=== PATIENT | female | born 1965 | race Caucasian/White ===

== ENCOUNTER 2016-06-26 17:42 | Outpatient (CLI) ==
[2016-06-26 17:52] VITALS: BMI 25.7
== END 2016-06-26 17:43 ==
LOC: AMBL 17:42
PROVIDERS: ATTEND Emergency Medicine
DX: M54.9 Dorsalgia, unspecified (principal); V40.5XXA Car driver injured in collision with pedestrian or animal in traffic accident, initial encounter

== ENCOUNTER 2016-06-26 17:51 | Emergency (ER) ==
[2016-06-26 17:52] VITALS: BMI 25.7
[2016-06-26] MEDS ORDERED: ZOFRAN ODT PO STA (18:02)
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
[2016-06-26] MEDS ORDERED: TORADOL IM STA (18:08)
[2016-06-26] MEDS ORDERED: ZOFRAN 4 MG/2 ML IM STA (18:08)
[2016-06-26 18:19] VITALS: BP 139/90; TEMP 98.5
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
== END 2016-06-26 19:32 | disposition home or self-care (01) ==
LOC: ED 17:51
DX: S39.012A Strain of muscle, fascia and tendon of lower back, initial encounter (principal); V40.5XXA Car driver injured in collision with pedestrian or animal in traffic accident, initial encounter; Z98.1 Arthrodesis status
CPT/HCPCS: 96372; 99283

== ENCOUNTER 2016-07-14 12:07 | Outpatient (CLI) ==
--- NOTE | 2016-07-14 18:06 | MRI ---
EXAM: Lumbar spine MRI without contrast. HISTORY: Low back pain with radiculopathy. COMPARISON: Lumbar spine CT scan 06/26/2016. TECHNIQUE: Multiplanar, multisequence MR images were acquired lumbar spine without contrast. FINDINGS: Five lumbar-type vertebra are present. There is minor lower lumbar dextroscoliosis cente red at L4-5 and 1.5 mm retrolisthesis of L4 on L5. The lumbar vertebra are normal in height and int rinsic bone marrow signal. There is minor lower lumbar ventral spondylosis and mild disc space narr owing at L4-5. Conus medullaris ends at L1 and has normal signal intensity. There are postoperativ e posterior longitudinal interbody fusion changes at L5-S1. Metallic artifact is present consistent with an anterior interbody graft and bipedicular screws and paired posterior fixation rods at L5-S1 . The visualized liver, spleen and kidneys are unremarkable. There are no paravertebral masses. T11-12: The intervertebral disc is normal. There is mild right hypertrophic facet arthropathy with out foraminal stenosis. T12-L1: The intervertebral disc is normal. There is minor right facet and ligamentum flavum hypert rophy and minor right foraminal stenosis. L1-2: The intervertebral disc is normal. L2-3: The intervertebral disc is normal. L3-4: The intervertebral disc is normal. L4-5: There is a mild disc bulge that is asymmetric to the left and mild bilateral hypertrophic fac et arthropathy and ligamentum flavum hypertrophy. This causes mild right and mild to moderate left neural foraminal stenosis with encroachment on the left L4 nerve. L5-S1: There are postoperative changes of an anterior interbody fusion, left hemilaminectomy and pa rtial medial facetectomy. Hypointense T1 and T2 soft tissue signal is present in the left anterior and lateral epidural space which extends into the medial left neural foramen and into the left poste rior paraspinous muscles. This is compatible with granulation tissue which partially surrounds the left L5 and S1 nerves. Contrast was not administered. There is no central canal stenosis or bony f oraminal stenosis. IMPRESSION: 1. Status post left L5-S1 microdiskectomy with hypointense T1 and T2 soft tissue signal partially s urrounding the left L5 and S1 nerves compatible with granulation tissue. Contrast was not administered. 2. Mild discogenic disease L4-5 with mild to moderate left neural foraminal stenosis.
== END 2016-07-14 12:08 | disposition home or self-care (01) ==
LOC: RAD 12:07
PROVIDERS: ATTEND Nurse Practitioner Gerontology
DX: M54.16 Radiculopathy, lumbar region (principal)

== ENCOUNTER 2016-07-20 15:55 | Emergency (ER) ==
[2016-07-20 16:01] VITALS: BP 135/96; TEMP 99.4; BMI 26.6
--- NOTE | 2016-07-20 16:03 | ED.PDOC ---
General ED Provider: Dr. CLIFTON QUINTERO JR Chief Complaint: Hypertension Stated Complaint: STATES ELEVATED BLOOD PRESSURE THIS WEEKEND--ALSO MIGRAINE HEADACHE-TOOK BISTOLIC TODAY--BLOOD PRESSURE 191/126 EARLIER TODAY THEN 151/117 [ End ]99.4 115 20 95% 135/96 Time Seen by Physician: 16:03 Mode of Arrival: Walk-In Information Source: Patient Exam Limitations: No limitations Primary Care Provider: SAMUEL ADRIAN Nursing and Triage Documentation Reviewed and Agree: No Review of Systems - Review Of Systems Constitutional: Reports: Malaise Eyes: Reports: Photophobia Ears, Nose, Mouth, Throat: Reports: No symptoms Respiratory: Reports: No symptoms Cardiac: Reports: Palpitations, Other GI: Reports: No symptoms : Reports: No symptoms Musculoskeletal: Reports: No symptoms Skin: Reports: No symptoms Neurological: Reports: Headache Endocrine: Reports: No symptoms Hematologic/Lymphatic: Reports: No symptoms All Other Systems: Other Past Medical History - Past Medical History Previously Healthy: Yes Endocrine: Reports: Hypothyroid Cardiovascular: Reports: None Respiratory: Reports: None Hematological: Reports: None Gastrointestinal: Reports: None Genitourinary: Reports: None Neuro/Psych: Reports: Migraine, Anxiety, Depression Musculoskeletal: Reports: Back Pain Cancer: Reports: None Last Menstrual Period: ABLATION Other Pertinent Past Medical History: right shoulder repaired x 2, gallbladder 2015, achilles tendon repair 2013 - Surgical History General Surgical History: Reports: Tubal ligation (right oophorectomy), C- section (x2), Appendectomy (18 y/o), Cholecystectomy (2014), Tonsillectomy ( tonsillectomy 6 y/o), Orthopedic (right shoulder repaired x 2, achilles tendon repair 2013), Back Surgery (SPACERS,PLATES AND SCREWS L-4 , S-07 OCT 2015), Other (thyroidectomy 2013, appendectomy at 18 y/o). Denies: Hysterectomy ( ablation 2000) - Family History Family History: Reports: Unknown - Social History Smoking Status: Former smoker Hx Substance Use: No Alcohol Screening: None Physical Exam - Physical Exam Appearance: Well-appearing Ill-appearing: Mild Pain Distress: Mild Eyes: BAO, EOMI, Conjunctiva clear ENT: Ears normal Neck: Supple Respiratory: Airway patent, Breath sounds clear, Breath sounds equal, Respirations nonlabored Cardiovascular: RRR, Pulses normal, No rub, No murmur (note blood pressure and home blood pressure was elevated before repeating medication) GI/: Soft, Nontender, No masses, Bowel sounds normal, No Organomegaly Musculoskeletal: Normal strength, ROM intact, No edema, No calf tenderness Skin: Warm, Dry, Normal color Neurological: Sensation intact, Motor intact, Reflexes intact, Cranial nerves intact, Alert, Oriented Psychiatric: Affect appropriate, Mood appropriate (concerned about thyroid dose) Re-Evaluation - Re-Evaluation Time of Re-Evaluation: 17:59 (bystolic 5 bid decreased to once daily by developer programmer analyst) Status: Improved (headache much better- will call dr cheatham about her thyroid, discuss dose of antihypertensive with dr adrian) Critical Care Note - Critical Care Note Total Time (mins): 5 Course - Course Orders, Labs, Meds: Lab Review 07/20/16 17:05 TSH 5.382 H Orders Category Date Time Status TSH [THYROID STIMULATING HORMONE] Stat LAB 07/20/16 17:05 Completed Promethazine HCl [Phenergan 25 mg/ml Vial] MEDS 07/20/16 16:04 Discontinued 25 mg IM ONCE STA Sumatriptan Succinate [Imitrex] MEDS 07/20/16 16:10 Discontinued 6 mg SUBCUT ONCE STA Medications Discontinued Medications Generic Name Dose Route Start Last Admin Trade Name Freq PRN Reason Stop Dose Admin Promethazine HCl 25 mg 07/20/16 16:04 07/20/16 16:18 Phenergan 25 Mg/Ml Vial IM 07/20/16 16:05 25 mg ONCE STA Administration Sumatriptan Succinate 6 mg 07/20/16 16:10 07/20/16 16:18 Imitrex SUBCUT 07/20/16 16:11 6 mg ONCE STA Administration Vital Signs: Temp Pulse Resp BP Pulse Ox 07/20/16 15:55 99.4 F 115 H 20 135/96 H 95 Departure - Departure Time of Disposition: 18:00 Disposition: HOME SELF-CARE Discharge Problem: Headache Qualifiers: Headache type: unspecified Headache chronicity pattern: acute headache Intractability: intractable Qualifier Code: (R51) Headache Instructions: Migraine Headache (ED), Tension Headache (ED) Condition: Good Pt referred to PMD for follow-up: Yes Additional Instructions: may take Tylenol and Motrin if headache not resolved call PMD for follow up inform developer programmer analyst of TSH; level consider adjusting thyroid medications Allergies/Adverse Reactions: Allergies IV dye Adverse Reaction (Uncoded 07/20/16 16:01) Home Medications: Ambulatory Orders Levothyroxine Sodium [Synthroid] 75 mcg PO QDAC 08/27/15 Liothyronine Sodium [Cytomel] 25 mcg PO DAILY 08/27/15 Sumatriptan Succinate [Imitrex] 100 mg PO DAILY PRN 08/27/15 Venlafaxine HCl [Effexor Xr] 150 mg PO BEDTIME 08/27/15 Atorvastatin Calcium [Lipitor] 20 mg PO BEDTIME 06/26/16 Nebivolol HCl [Bystolic] 5 mg PO BID 06/26/16
[2016-07-20] MEDS ORDERED: ZOFRAN 4 MG/2 ML IM STA (16:04)
[2016-07-20] MEDS ORDERED: PHENERGAN 25 MG/ML VIAL IM STA (16:04)
[2016-07-20] MEDS ORDERED: TORADOL IM STA (16:04)
[2016-07-20] MEDS ORDERED: IMITREX SUBCUT STA (16:10)
== END 2016-07-20 18:09 | disposition home or self-care (01) ==
LOC: ED 15:55
DX: R51 Headache (principal); E03.9 Hypothyroidism, unspecified; Z79.899 Other long term (current) drug therapy
CPT/HCPCS: 36415; 84443; 96372; 99283

== ENCOUNTER 2016-08-06 17:24 | Observation (INO) ==
[2016-08-06] MEDS ORDERED: ATIVAN PO PRN (17:46)
[2016-08-06] MEDS ORDERED: NON-FORMULARY MEDICATION (Sumatriptan Succinate [Imitrex] 100 MG) PO PRN (17:58)
[2016-08-06 18:12] VITALS: BMI 26.7
[2016-08-06 18:14] LABS: BASOPHILS # (AUTO) 0.1 K/uL (0-0.2); BASOPHILS % (AUTO) 0.8 % (0.0-3.0); EOSINOPHILS # (AUTO) 0.2 K/ul (0.0-0.7); EOSINOPHILS % (AUTO) 2.1 % (0.0-7.0); HEMATOCRIT 40.3 % (37.0-47.0); HEMOGLOBIN 14.5 g/dl (12.0-16.0); IMMATURE GRANULOCYTE % (AUTO) 0.4 % (0.0-5.0); LYMPHOCYTES # (AUTO) 2.4 K/uL (0.60-3.4); LYMPHOCYTES % (AUTO) 21.5 (10.0-50.0); MEAN CORPUSCULAR HEMOGLOBIN 31.3 pg (27.0-31.0); MEAN CORPUSCULAR VOLUME 86.9 fl (81.0-99.0); MONOCYTES # (AUTO) 0.4 K/uL (0.4-2.0); MONOCYTES % (AUTO) 3.9 (0-10); NEUTROPHILS % (AUTO) 71.3; PLATELET COUNT 321 10^3/uL (140-440); RED BLOOD COUNT 4.64 10^6/ul (4.20-5.40)
[2016-08-06 18:54] LABS: ALANINE AMINOTRANSFERASE 28 U/L (12-78); ALBUMIN/GLOBULIN RATIO 1.18; ALKALINE PHOSPHATASE 62 U/L (42-98); ANION GAP 13.6; ASPARTATE AMINO TRANSFERASE 21 U/L (15-37); BILIRUBIN,TOTAL 0.59 mg/dL (0.00-1.20); BLOOD UREA NITROGEN 13 mg/dL (7-18); BUN/CREATININE RATIO 13.97; CARBON DIOXIDE 26 mmol/L (21-32); CHLORIDE 103 mmol/L (98-107); CREATINE KINASE 175 U/L; CREATININE 0.93 mg/dL (0.60-1.30); GLUCOSE 100 mg/dL (70-110); POTASSIUM 3.6 mmol/L (3.5-5.10); SODIUM 139 mmol/L (136-145); TOTAL PROTEIN 7.4 g/dL (6.4-8.2)
[2016-08-06 18:59] LABS: CREATINE KINASE MB 2.8 ng/ml (0.0-3.6)
[2016-08-06] MEDS: CATAPRES PO SCH ×2 (19:17→20:15)
[2016-08-06] MEDS: BYSTOLIC PO SCH (19:34)
[2016-08-06] MEDS ORDERED: EFFEXOR XR PO SCH (21:00)
[2016-08-06] MEDS ORDERED: LIPITOR PO SCH (21:00)
[2016-08-06] MEDS ORDERED: REQUIP PO SCH (21:00)
[2016-08-06 22:28] LABS: BILIRUBIN,URINE Negative (NEGATIVE); KETONES,URINE Negative (NEGATIVE); LEUKOCYTE ESTERASE ,URINE 3+ (NEGATIVE); NITRITE,URINE Negative (NEGATIVE); PH,URINE 5.5 (5-9); PROTEIN,URINE Negative (NEGATIVE); URINE, BLOOD 1+ (NEGATIVE)
[2016-08-06 22:30] LABS: ADD URINE MICROSCOPIC YES
[2016-08-06 22:31] LABS: GRANULAR CASTS,URINE 0-2 (NOT PRESENT)
[2016-08-07] MEDS ORDERED: IMITREX PO PRN (07:14)
[2016-08-07] MEDS ORDERED: ZOFRAN 4 MG/2 ML IVP STA (09:11)
[2016-08-07] MEDS: CATAPRES PO SCH (10:09)
[2016-08-07] MEDS: BYSTOLIC PO SCH (10:34)
[2016-08-07 10:46] LABS: CREATINE KINASE 148 U/L
[2016-08-07 10:52] LABS: CREATINE KINASE 132 U/L
[2016-08-07 10:55] LABS: CREATINE KINASE MB 1.8 ng/ml (0.0-3.6)
[2016-08-07 11:01] VITALS: BP 104/69; TEMP 97.5
--- NOTE | 2016-10-02 10:20 | SSS ---
PRINCIPAL DIAGNOSIS: 1. Hypertensive urgency 2. Hypothyroidism 3. Migraine headache 4. Hyperlipidemia DISCUSSION: This is a 50 year old lady with migraine headaches and hypertension as well as hypothyroidism who presented to the emergency department with elevated blood pressure associated with headache. Her blood pressure was noted to be 191/126 early in the day. She was seen in the emergency department by Dr. Pollack and her blood pressure remained elevated and at this time her blood pressure was difficult to control and because persistent headache she was admitted to my services for observation. MEDICATIONS: Synthroid Cytomel Imitrex Effexor Lipitor Bystolic ALLERGIES: IV dye PAST MEDICAL HISTORY: Hypothyroidism Migraine headaches Hyperlipidemia Hypertension SURGICAL HISTORY: Right shoulder repair Gallbladder removal Cholecystectomy Achilles Tendon repair Tubal ligation section Appendectomy Tonsillectomy Thyroidectomy Appendectomy Hysterectomy with ablation, 2000 SOCIAL HISTORY: Previous smoker, no alcohol or illicit drug use noted. FAMILY HISTORY: Reviewed and thought not to be pertinent to discussion. REVIEW OF SYSTEMS: Headaches, No visual changes, tinnitus, hemoptysis, chest pain, shortness of breath, abdominal pain, blood in the stool, urinary symptoms or seizures. PHYSICAL EXAMINATION: VITAL SIGNS: Temperature 98.1, pulse 64, respirations 15 and blood pressure 116 /80. GENERAL: Exam reveals a 50-year-old lady who appears her stated age. She is alert times three. HEENT: Pupils are round. NECK: Supple. CHEST: Clear. CARDIOVASCULAR: Regular rate and rhythm. ABDOMEN: Soft, nontender. EXTREMITIES: Distal extremities without cyanosis or edema. CLINICAL COURSE: The patient was admitted to my services blood pressure was observes and seemed to improve, her headache resolved by this patient this patient was thought to be stable for discharge. She was discharged and will followup with me as well as her mold breaker in regards to her abnormal thyroid testing. Please see orders. MTDD
== END 2016-08-07 13:40 | disposition home or self-care (01) ==
LOC: MEDSURG B 17:24
PROVIDERS: ADMIT Family Medicine; ATTEND Family Medicine
DX: I16.0 Hypertensive urgency (principal); E03.9 Hypothyroidism, unspecified; G43.909 Migraine, unspecified, not intractable, without status migrainosus; E78.5 Hyperlipidemia, unspecified; Z87.891 Personal history of nicotine dependence; Z79.899 Other long term (current) drug therapy
CPT/HCPCS: 36415; 80053; 81001; 82550; 82553; 84439; 84443; 84484; 85025; 87086; 93005; 93010; 96374

== ENCOUNTER 2017-01-13 10:43 | Emergency (ER) ==
[2017-01-13 10:54] VITALS: BP 111/76; TEMP 97; BMI 25.7
[2017-01-13] MEDS: ZOFRAN 4 MG/2 ML IM STA ×2 (10:58→11:35)
[2017-01-13] MEDS: MORPHINE 4 MG/ML SYRINGE IM STA ×3 (10:59→13:22)
--- NOTE | 2017-01-13 12:05 | ED.PDOC ---
General ED Provider: Dr. KIET REBOLLEDO Chief Complaint: Headache Stated Complaint: headache Time Seen by Physician: 10:45 Mode of Arrival: Walk-In Information Source: Patient Exam Limitations: No limitations Primary Care Provider: SAMUEL ADRIAN Nursing and Triage Documentation Reviewed and Agree: Yes Neurological Complaint Exam - Headache Complaint/Exam Onset: Gradual Duration: 1 day Symptoms Are: Still present Timing: Constant Episodes Lasting: Hours Worst Headache Ever: No Initial Severity: Moderate Current Severity: Moderate Location: Frontal, Temporal Character: Reports: Throbbing Aggravating: Reports: None Alleviating: Reports: None Associated Signs and Symptoms: Reports: Nausea, Vomiting. Denies: Dizziness, Seizure, Sinus pressure, Fever, Neck pain, Neck stiffness, Decreased LOC, Visual changes Related History: Reports: Similar episode Related Surgical History: Reports: None SAH Risk Factors: Reports: None Meningitis Risk Factors: Reports: None SDH Risk Factors: Reports: None Temporal Arteritis Risk Factors: Reports: Female, Normal Head CT Within Last 12 Months: Yes (has neurologist prior MRI WAS WNL) Fundoscopic Exam: Present: Normal Findings Papilledema Present: No Temporal Artery Tenderness: Present: None Sinus Tenderness: Present: None TMJ Tenderness: Present: None Glascow Coma Scale (see protocol): 15 Meningeal Signs Positive: No Pain on Passive Flexion-Positive Kernig's: No ROM Limited In: No Limitiations Focal Weakness: Present: None Focal Sensory Loss: Present: None Gait: Normal Nystagmus Present: No Gag Reflex Present: No Babinski Sign: Negative Right, Negative Left Differential Diagnoses: Migraine Review of Systems - Review Of Systems Constitutional: Reports: No symptoms Eyes: Reports: No symptoms Ears, Nose, Mouth, Throat: Reports: No symptoms Respiratory: Reports: No symptoms Cardiac: Reports: No symptoms GI: Reports: No symptoms : Reports: No symptoms Musculoskeletal: Reports: No symptoms Skin: Reports: No symptoms Neurological: Reports: Headache Endocrine: Reports: No symptoms Hematologic/Lymphatic: Reports: No symptoms All Other Systems: Reviewed and Negative Past Medical History - Past Medical History Previously Healthy: Yes Endocrine: Reports: Hypothyroid Cardiovascular: Reports: None Respiratory: Reports: None Hematological: Reports: None Gastrointestinal: Reports: None Genitourinary: Reports: None Neuro/Psych: Reports: Migraine, Anxiety, Depression Musculoskeletal: Reports: Back Pain Cancer: Reports: None Last Menstrual Period: n/a Other Pertinent Past Medical History: right shoulder repaired x 2, gallbladder 2015, achilles tendon repair 2013 - Surgical History General Surgical History: Reports: Tubal ligation (right oophorectomy), C- section (x2), Appendectomy (18 y/o), Cholecystectomy (2014), Tonsillectomy ( tonsillectomy 6 y/o), Orthopedic (right shoulder repaired x 2, achilles tendon repair 2013), Back Surgery (SPACERS,PLATES AND SCREWS L-4 , S-07 OCT 2015), Other (thyroidectomy 2013, appendectomy at 18 y/o). Denies: Hysterectomy ( ablation 2000) - Family History Family History: Reports: Unknown - Social History Smoking Status: Former smoker Hx Substance Use: No Alcohol Screening: None - Immunizations Tetanus Shot up to Date: Yes Physical Exam - Physical Exam Appearance: Well-appearing, No pain distress, Well-nourished Eyes: BAO, EOMI, Conjunctiva clear ENT: Ears normal, Nose normal, Oropharynx normal Respiratory: Airway patent, Breath sounds clear, Breath sounds equal, Respirations nonlabored Cardiovascular: RRR, Pulses normal, No rub, No murmur GI/: Soft, Nontender, No masses, Bowel sounds normal, No Organomegaly Musculoskeletal: Normal strength, ROM intact, No edema, No calf tenderness Skin: Warm, Dry, Normal color Neurological: Sensation intact, Motor intact, Reflexes intact, Cranial nerves intact, Alert, Oriented Psychiatric: Affect appropriate, Mood appropriate Critical Care Note - Critical Care Note Total Time (mins): 0 Course - Course Orders, Labs, Meds: Orders Category Date Time Status Morphine Sulfate [Morphine 4 mg/ml Syringe] MEDS 01/13/17 10:48 Stat 4 mg IM ONCE STA Morphine Sulfate [Morphine 4 mg/ml Syringe] MEDS 01/13/17 11:30 Stat 4 mg IM ONCE STA Ondansetron HCl/Pf [Zofran 4 mg/2 ml] MEDS 01/13/17 10:48 Stat 4 mg IM ONCE STA Ondansetron HCl/Pf [Zofran 4 mg/2 ml] MEDS 01/13/17 11:30 Stat 4 mg IM ONCE STA Medications Discontinued Medications Generic Name Dose Route Start Last Admin Trade Name Freq PRN Reason Stop Dose Admin Morphine Sulfate 4 mg 01/13/17 10:48 01/13/17 10:59 Morphine 4 Mg/Ml Syringe IM 01/13/17 10:49 4 mg ONCE STA Administration Morphine Sulfate 4 mg 01/13/17 11:30 01/13/17 11:36 Morphine 4 Mg/Ml Syringe IM 01/13/17 11:31 4 mg ONCE STA Administration Ondansetron HCl 4 mg 01/13/17 10:48 01/13/17 10:58 Zofran 4 Mg/2 Ml IM 01/13/17 10:49 4 mg ONCE STA Administration Ondansetron HCl 4 mg 01/13/17 11:30 01/13/17 11:35 Zofran 4 Mg/2 Ml IM 01/13/17 11:31 4 mg ONCE STA Administration Vital Signs: Temp Pulse Resp BP Pulse Ox 01/13/17 10:49 97 F L 68 20 111/76 98 Departure - Departure Time of Disposition: 12:20 (CELESTE WAS PRESENT AT ALL TIMES ) Disposition: HOME SELF-CARE Discharge Problem: Headache Instructions: Acute Headache (ED) Condition: Good Pt referred to PMD for follow-up: Yes Allergies/Adverse Reactions: Allergies IV dye Adverse Reaction (Uncoded 01/13/17 11:02) Home Medications: Ambulatory Orders Levothyroxine Sodium [Synthroid] 75 mcg PO QDAC 08/27/15 Liothyronine Sodium [Cytomel] 25 mcg PO DAILY 08/27/15 Sumatriptan Succinate [Imitrex] 100 mg PO DAILY PRN 08/27/15 Venlafaxine HCl [Effexor Xr] 150 mg PO BEDTIME 08/27/15 Atorvastatin Calcium [Lipitor] 20 mg PO BEDTIME 06/26/16
[2017-01-13] MEDS: VALIUM SYRINGE IM STA (12:19)
[2017-01-13] MEDS: PHENERGAN 25 MG/ML VIAL IM STA (12:20)
== END 2017-01-13 13:50 | disposition home or self-care (01) ==
LOC: ED 10:43
DX: R51 Headache (principal); R11.2 Nausea with vomiting, unspecified
CPT/HCPCS: 96372; 99283

== ENCOUNTER 2017-07-15 08:20 | Outpatient (CLI) ==
--- NOTE | 2017-07-15 09:17 | US ---
EXAM: Complete abdominal ultrasound. History: Abnormal liver function tests. Comparison: CT abdomen pelvis 08/27/2015 Technique: Multiple sonographic images through the abdomen were obtained. Color duplex Doppler was used to interrogate vascular flow. Findings: The visualized pancreas demonstrates no gross abnormality. Status post cholecystectomy. No abdomina l ascites. Common bile duct measures 0.5 cm in caliber. There is antegrade flow within the main por noemi vein. The periportal echoes within the liver are maintained. No focal liver lesions identified sonographically. The visualized abdominal aorta and IVC demonstrate normal caliber. Spleen is not enlarged. No focal splenic lesions. Both kidneys measure normal in long length demonstrating normal cortical echogenicity without evidenc e for hydronephrosis, mass or shadowing calculus. The bladder was not well distended. Impression: 1. Sonographically normal liver. 2. Status post cholecystectomy
== END 2017-07-15 08:21 | disposition home or self-care (01) ==
LOC: RAD 08:20
PROVIDERS: ATTEND Preventive Medicine Public Health & General Preventive Medicine
DX: R94.5 Abnormal results of liver function studies (principal)

== ENCOUNTER 2017-07-17 18:45 | Emergency (ER) ==
[2017-07-17 18:49] VITALS: BMI 27.1
[2017-07-17] MEDS ORDERED: TORADOL IM STA (18:53)
[2017-07-17] MEDS ORDERED: DILAUDID 1 MG/ML SYRINGE IM STA ×2 (18:53→19:05)
[2017-07-17] MEDS ORDERED: PHENERGAN 25 MG/ML VIAL IM STA (18:54)
[2017-07-17] MEDS ORDERED: MORPHINE 2 MG/ML SYRINGE IM STA ×3 (20:20→20:23)
[2017-07-17] MEDS ORDERED: MORPHINE 4 MG/ML VIAL ONE (20:22)
[2017-07-17] MEDS ORDERED: MORPHINE 2 MG/ML SYRINGE ONE (20:25)
--- NOTE | 2017-07-17 20:56 | DI ---
Exam: Two-view chest x-ray. Date: 07/17/2017. Comparison: 08/07/2015. HISTORY: Cough and fever. FINDINGS: The osseous structures are normal. The lungs are clear with calcified granulomas. Cardia c silhouette and pulmonary vasculature are within normal limits. Impression: No acute intrathoracic findings.
[2017-07-17] MEDS ORDERED: TAMIFLU PO STA (22:33)
--- NOTE | 2017-07-17 22:37 | ED.PDOC ---
General ED Provider: Dr. SAMUEL ADRIAN-ER Chief Complaint: Respiratory Complaint Stated Complaint: i think i have the flu--it caused me to have a migraine Time Seen by Physician: 18:50 Mode of Arrival: Walk-In Information Source: Patient Exam Limitations: No limitations Primary Care Provider: SAMUEL ADRIAN Nursing and Triage Documentation Reviewed and Agree: Yes Reviewed sepsis parameters & appropriate labs ordered?: Yes System Inflammatory Response Syndrome: Not Applicable Sepsis Protocol: For patient's 13 years and over: Temp is 96.8 and below OR 101 and greater Pulse >90 BPM Resp >20/minute Acutely Altered Mental Status Are patient's symptoms suggestive of a new infection, such as: -Pneumonia -Skin, Soft Tissue -Endocarditis -UTI -Bone, Joint Infection -Implantable Device -Acute Abdominal Infection -Wound Infection -Meningitis -Blood Stream Catheter Infection -Unknown Respiratory Complaint Exam - Respiratory Complaint/Exam Onset/Duration: 24jhrs Symptoms Are: Still present Timing: Intermittent Initial Severity: Mild Current Severity: Moderate Location: Nose, Chest Character: Reports: Non-productive cough Aggravating: Reports: URI Alleviating: Reports: None Associated Signs and Symptoms: Reports: Fever, Chills, URI, Nasal congestion. Denies: Rapid breathing, Dyspnea, Chest pain, Pleuritic chest pain, Wheezing, Hemoptysis, Dizziness, Calf pain, Calf swelling, Edema, Hoarseness, Sinus discomfort, Vomiting, Sore throat, Weight loss, Decreased oral intake, Increased thirst, Increased appetite, Increased urination Related History: Reports: Similar episode History of Healthcare-Acquired Pneumonia: No Related Surgical History: Reports: None Pulmonary Embolism Risk Factors: None Pseudomonas Risk Factors: Reports: None Tuberculosis Risk Factors: Reports: None Status Asthmaticus Risk Factors: Reports: None Home Oxygen Use: Yes Recent Stress Test: No Recent Echo/LV Function: No Current Antibiotic Use: No Current Asthma Medication Use: No Respiratory Distress: None Inadequate Respiratory Effort: No Dysphagia Present: No Stridor Present: No JVD Present: No Accessory Muscle Use: No Retractions: Not Present Diminished Breath Sounds: No Sinus Tenderness: None Grunting Respirations: No Kussmaul Respirations: No Differential Diagnoses: Influenza Review of Systems - Review Of Systems Constitutional: Reports: Fever, Weakness Eyes: Reports: No symptoms Ears, Nose, Mouth, Throat: Reports: Nose discharge Respiratory: Reports: Cough Cardiac: Reports: No symptoms GI: Reports: No symptoms : Reports: No symptoms Musculoskeletal: Reports: No symptoms Skin: Reports: No symptoms Neurological: Reports: Headache Endocrine: Reports: No symptoms Hematologic/Lymphatic: Reports: No symptoms All Other Systems: Reviewed and Negative Past Medical History - Past Medical History Previously Healthy: Yes Endocrine: Reports: Hypothyroid Cardiovascular: Reports: None Respiratory: Reports: None Hematological: Reports: None Gastrointestinal: Reports: None Genitourinary: Reports: None Neuro/Psych: Reports: Migraine, Anxiety, Depression Musculoskeletal: Reports: Back Pain Cancer: Reports: None Last Menstrual Period: ablasion Other Pertinent Past Medical History: right shoulder repaired x 2, gallbladder 2015, achilles tendon repair 2013 - Surgical History General Surgical History: Reports: Tubal ligation (right oophorectomy), C- section (), Appendectomy (18 y/o), Cholecystectomy (2014), Tonsillectomy ( tonsillectomy 6 y/o), Orthopedic (right shoulder repaired x 2, achilles tendon repair 2013), Back Surgery (SPACERS,PLATES AND SCREWS L-4 , S-07 OCT 2015), Other (thyroidectomy 2013, appendectomy at 18 y/o). Denies: Hysterectomy ( ablation 2000) - Family History Family History: Reports: Unknown - Social History Smoking Status: Former smoker Hx Substance Use: No Alcohol Screening: None Lives: With family Physical Exam - Physical Exam Appearance: Well-appearing Pain Distress: Moderate Eyes: BAO, EOMI, Conjunctiva clear ENT: Ears normal, Nose normal, Oropharynx normal Neck: Supple Respiratory: Airway patent, Breath sounds clear Cardiovascular: RRR, Pulses normal, No rub, No murmur GI/: Soft, Nontender, No masses, Bowel sounds normal, No Organomegaly Musculoskeletal: Normal strength, ROM intact, No edema, No calf tenderness Skin: Warm, Dry, Normal color Neurological: Sensation intact, Motor intact, Reflexes intact, Cranial nerves intact, Alert, Oriented Psychiatric: Affect appropriate, Mood appropriate Interpretation - Radiology Interpretation Radiology Interpretation By: Radiologist Radiology Results: Negative Exam Interpreted: CXR Re-Evaluation - Re-Evaluation Time of Re-Evaluation: 22:37 Status: Improved Vital Signs Stable: Yes Pain Level: 0 Appearance: NAD Lungs: Clear Skin: Warm and Dry Neuro: Alert and Oriented X3 CV: RRR Critical Care Note - Critical Care Note Total Time (mins): 0 Course - Course Hematology/Chemistry: 07/17/17 19:10 02/09/18 19:10 Orders, Labs, Meds: Lab Review 07/17/17 07/17/17 07/17/17 19:10 19:10 19:16 WBC 7.32 RBC 4.70 Hgb 14.5 Hct 40.2 MCV 85.5 MCH 30.9 MCHC 36.1 H RDW Coeff of Sondra 12.7 Plt Count 244 Immature Gran % (Auto) 0.4 Neut % (Auto) 87.8 Lymph % (Auto) 5.9 L Wilcox % (Auto) 5.3 Eos % (Auto) 0.1 Baso % (Auto) 0.5 Immature Gran # (Auto) 0.0 Neut # 6.4 Lymph # 0.4 L Wilcox # 0.4 Eos # 0.0 Baso # 0.0 Sodium 143 Potassium 3.3 L Chloride 106 Carbon Dioxide 24 Anion Gap 16.3 BUN 12 Creatinine 1.09 Estimated GFR (MDRD) 53.00 BUN/Creatinine Ratio 11.00 Glucose 150 H Calcium 9.9 Total Bilirubin 0.9 AST 38 H ALT 60 Alkaline Phosphatase 91 Total Protein 8.1 Albumin 3.9 Globulin 4.2 Albumin/Globulin Ratio 0.93 Influenza A (Rapid) Positive by naat H Influenza B (Rapid) Negative by naat Orders Category Date Time Status BLOOD CULTURE (ED ONLY) Stat LAB 07/17/17 19:10 Received CBC W/ AUTO DIFF Stat LAB 07/17/17 19:10 Completed COMPREHENSIVE METABOLIC PANEL Stat LAB 07/17/17 19:10 Completed FLU A/B MOLECULAR Stat LAB 07/17/17 19:16 Completed MOLECULAR GROUP A STREP Stat LAB 07/17/17 19:16 Completed Hydromorphone HCl [Dilaudid 1 mg/ml Syringe] MEDS 07/17/17 19:05 Discontinued 2 mg IM ONCE STA Ketorolac Tromethamine [Toradol] MEDS 07/17/17 18:53 Discontinued 60 mg IM ONCE STA Morphine Sulfate [Morphine 2 mg/ml Syringe] MEDS 07/17/17 20:23 Discontinued 2 mg IM ONCE STA Morphine Sulfate [Morphine 2 mg/ml Syringe] MEDS 07/17/17 20:23 Discontinued 2 mg IM ONCE STA Morphine Sulfate [Morphine 2 mg/ml Syringe] MEDS 07/17/17 20:25 Discontinued 4 mg .ROUTE .STK-MED ONE Morphine Sulfate [Morphine 4 mg/ml Vial] MEDS 07/17/17 20:22 Discontinued 4 mg .ROUTE .STK-MED ONE Oseltamivir Phosphate [Tamiflu] MEDS 07/17/17 22:33 Stat 75 mg PO ONCE STA Promethazine HCl [Phenergan 25 mg/ml Vial] MEDS 07/17/17 18:54 Discontinued 25 mg IM ONCE STA CXR [CHEST, 2 VIEWS PA & LAT] Stat RADS 07/17/17 18:53 Completed Medications Discontinued Medications Generic Name Dose Route Start Last Admin Trade Name Parveen PRN Reason Stop Dose Admin Hydromorphone HCl 2 mg 07/17/17 19:05 07/17/17 19:11 Dilaudid 1 Mg/Ml Syringe IM 07/17/17 19:06 2 mg ONCE STA Administration Ketorolac Tromethamine 60 mg 07/17/17 18:53 07/17/17 19:06 Toradol IM 07/17/17 18:54 60 mg ONCE STA Administration Morphine Sulfate 2 mg 07/17/17 20:23 07/17/17 20:29 Morphine 2 Mg/Ml Syringe IM 07/17/17 20:24 2 mg ONCE STA Administration Morphine Sulfate 2 mg 07/17/17 20:23 07/17/17 20:29 Morphine 2 Mg/Ml Syringe IM 07/17/17 20:24 2 mg ONCE STA Administration Oseltamivir Phosphate 75 mg 07/17/17 22:33 Tamiflu PO 07/17/17 22:34 ONCE STA Promethazine HCl 25 mg 07/17/17 18:54 07/17/17 19:07 Phenergan 25 Mg/Ml Vial IM 07/17/17 18:55 25 mg ONCE STA Administration she does have valente but doesnt have any meningeal signs) Vital Signs: Temp Pulse Resp BP Pulse Ox 07/17/17 21:38 99.4 F 88 15 134/82 96 07/17/17 18:46 99.9 F H 121 H 16 131/89 98 Departure - Departure Time of Disposition: 22:37 Disposition: HOME SELF-CARE Discharge Problem: Influenza Instructions: Influenza (ED) Condition: Good Pt referred to PMD for follow-up: Yes IPMP verified?: No Additional Instructions: tamiflu 75mg bid x 5 days--motrin for valente and temp---call if not better in 48hrs or change in symptoms Allergies/Adverse Reactions: Allergies IV dye Adverse Reaction (Uncoded 07/17/17 18:49) Home Medications: Ambulatory Orders Levothyroxine Sodium [Synthroid] 75 mcg PO QDAC 08/27/15 Liothyronine Sodium [Cytomel] 25 mcg PO DAILY 08/27/15 Sumatriptan Succinate [Imitrex] 100 mg PO DAILY PRN 08/27/15 Venlafaxine HCl [Effexor Xr] 150 mg PO BEDTIME 08/27/15 Atorvastatin Calcium [Lipitor] 20 mg PO BEDTIME 06/26/16 Disposition Discussed With: Patient, Family
[2017-07-17 22:45] VITALS: BP 143/81; TEMP 99.6
== END 2017-07-17 22:51 | disposition home or self-care (01) ==
LOC: ED 18:45
DX: J09.X2 Influenza due to identified novel influenza A virus with other respiratory manifestations (principal); E03.9 Hypothyroidism, unspecified
CPT/HCPCS: 36415; 80053; 85025; 87040; 87502; 87651; 96372; 99283

== ENCOUNTER 2017-10-14 07:14 | Outpatient (CLI) ==
--- NOTE | 2017-10-14 09:19 | US ---
EXAM: Limited abdominal ultrasound. History: Elevated liver enzymes. Technique: Multiple sonographic images through the abdomen were obtained. Color duplex Doppler was used to interrogate vascular flow. Findings: The visualized pancreas demonstrates no gross abnormality. The liver is not echogenic. No focal mick er lesions identified sonographically. Status post cholecystectomy. No abdominal ascites. Common b ile duct measures 0.3 cm in caliber. There is antegrade flow within the main portal vein. Impression: No sonographic abnormality of the liver.
== END 2017-10-14 07:15 | disposition home or self-care (01) ==
LOC: RAD 07:14
PROVIDERS: ATTEND Family Medicine
DX: R74.8 Abnormal levels of other serum enzymes (principal)

== ENCOUNTER 2017-11-23 16:36 | Emergency (ER) ==
[2017-11-23 16:42] VITALS: TEMP 97.5; BMI 27.4
[2017-11-23] MEDS ORDERED: DILAUDID IM STA (16:54)
[2017-11-23] MEDS ORDERED: ZOFRAN 4 MG/2 ML IM STA (16:54)
--- NOTE | 2017-11-23 16:54 | ED.PDOC ---
General ED Provider: Dr. KIET REBOLLEDO Chief Complaint: Headache Stated Complaint: headache Time Seen by Physician: 16:40 Mode of Arrival: Walk-In Information Source: Patient Exam Limitations: No limitations Primary Care Provider: SAMUEL ADRIAN Nursing and Triage Documentation Reviewed and Agree: Yes Reviewed sepsis parameters & appropriate labs ordered?: Yes System Inflammatory Response Syndrome: Not Applicable Sepsis Protocol: For patient's 13 years and over: Temp is 96.8 and below OR 101 and greater Pulse >90 BPM Resp >20/minute Acutely Altered Mental Status Are patient's symptoms suggestive of a new infection, such as: -Pneumonia -Skin, Soft Tissue -Endocarditis -UTI -Bone, Joint Infection -Implantable Device -Acute Abdominal Infection -Wound Infection -Meningitis -Blood Stream Catheter Infection -Unknown Neurological Complaint Exam - Headache Complaint/Exam Onset: Gradual Duration: today Symptoms Are: Still present Timing: Constant Episodes Lasting: Hours Worst Headache Ever: No Initial Severity: Moderate Current Severity: Moderate Location: Left, Temporal Character: Reports: Throbbing Aggravating: Reports: Exertion Alleviating: Reports: Rest, Medications Associated Signs and Symptoms: Reports: Nausea, Vomiting. Denies: Dizziness, Seizure, Sinus pressure, Fever, Neck pain, Neck stiffness, Decreased LOC, Visual changes Related History: Reports: Similar episode Related Surgical History: Reports: None SAH Risk Factors: Reports: None Meningitis Risk Factors: Reports: None SDH Risk Factors: Reports: None Temporal Arteritis Risk Factors: Reports: None Normal Head CT Within Last 12 Months: Yes Fundoscopic Exam: Present: Normal Findings Papilledema Present: No Temporal Artery Tenderness: Present: None Sinus Tenderness: Present: None TMJ Tenderness: Present: None Glascow Coma Scale (see protocol): 15 Meningeal Signs Positive: No Pain on Passive Flexion-Positive Kernig's: No ROM Limited In: No Limitiations Focal Weakness: Present: None Focal Sensory Loss: Present: None Gait: Normal Nystagmus Present: Yes Differential Diagnoses: Migraine Review of Systems - Review Of Systems Constitutional: Reports: No symptoms Eyes: Reports: No symptoms Ears, Nose, Mouth, Throat: Reports: No symptoms Respiratory: Reports: No symptoms Cardiac: Reports: No symptoms GI: Reports: No symptoms : Reports: No symptoms Musculoskeletal: Reports: No symptoms Skin: Reports: No symptoms Neurological: Reports: Headache Endocrine: Reports: No symptoms Hematologic/Lymphatic: Reports: No symptoms All Other Systems: Reviewed and Negative Past Medical History - Past Medical History Previously Healthy: Yes Endocrine: Reports: Hypothyroid Cardiovascular: Reports: None Respiratory: Reports: None Hematological: Reports: None Gastrointestinal: Reports: None Genitourinary: Reports: None Neuro/Psych: Reports: Migraine, Anxiety, Depression Musculoskeletal: Reports: Back Pain Cancer: Reports: None Last Menstrual Period: none Other Pertinent Past Medical History: right shoulder repaired x 2, gallbladder 2015, achilles tendon repair 2013 - Surgical History General Surgical History: Reports: Tubal ligation (right oophorectomy), C- section (x2), Appendectomy (18 y/o), Cholecystectomy (2014), Tonsillectomy ( tonsillectomy 6 y/o), Orthopedic (right shoulder repaired x 2, achilles tendon repair 2013), Back Surgery (SPACERS,PLATES AND SCREWS L-09 10, S-07 OCT 2015), Other (thyroidectomy 2013, appendectomy at 18 y/o). Denies: Hysterectomy ( ablation 2000) - Family History Family History: Reports: Unknown - Social History Smoking Status: Former smoker Hx Substance Use: No Alcohol Screening: None Physical Exam - Physical Exam Appearance: Well-appearing, No pain distress, Well-nourished Eyes: BAO, EOMI, Conjunctiva clear ENT: Ears normal, Nose normal, Oropharynx normal Respiratory: Airway patent, Breath sounds clear, Breath sounds equal, Respirations nonlabored Cardiovascular: RRR, Pulses normal, No rub, No murmur GI/: Soft, Nontender, No masses, Bowel sounds normal, No Organomegaly Musculoskeletal: Normal strength, ROM intact, No edema, No calf tenderness Skin: Warm, Dry, Normal color Neurological: Sensation intact, Motor intact, Reflexes intact, Cranial nerves intact, Alert, Oriented Psychiatric: Affect appropriate, Mood appropriate Critical Care Note - Critical Care Note Total Time (mins): 0 Course - Course Vital Signs: Temp Pulse Resp BP Pulse Ox 11/23/17 16:36 97.5 F L 90 18 128/89 98 Departure - Departure Time of Disposition: 18:00 Disposition: HOME SELF-CARE Discharge Problem: Headache Instructions: Acute Headache (DC), Acute Headache (ED) Condition: Good Pt referred to PMD for follow-up: Yes IPMP verified?: No Additional Instructions: Please call your Family Physician as soon as possible to schedule a follow-up appointment. Allergies/Adverse Reactions: Allergies Iodinated Contrast- Oral and IV Dye Adverse Reaction (Verified 11/23/17 16:42) Home Medications: Ambulatory Orders Levothyroxine Sodium [Synthroid] 75 mcg PO QDAC 08/27/15 Liothyronine Sodium [Cytomel] 25 mcg PO DAILY 08/27/15 Sumatriptan Succinate [Imitrex] 100 mg PO DAILY PRN 08/27/15 Venlafaxine HCl [Effexor Xr] 150 mg PO BEDTIME 08/27/15 Atorvastatin Calcium [Lipitor] 20 mg PO BEDTIME 06/26/16 Disposition Discussed With: Patient
[2017-11-23] MEDS ORDERED: PHENERGAN 25 MG/ML VIAL 25 MG in SODIUM CHLORIDE 50 ML IV STA (17:43)
[2017-11-23] MEDS ORDERED: SODIUM CHLORIDE 1,000 ML IV STA (17:44)
[2017-11-23] MEDS ORDERED: PHENERGAN 25 MG/ML VIAL ONE (17:45)
[2017-11-23] MEDS ORDERED: DILAUDID IVP STA (18:14)
[2017-11-23 19:03] VITALS: BP 108/55
== END 2017-11-23 19:40 | disposition home or self-care (01) ==
LOC: ED 16:36
DX: R51 Headache (principal); R11.2 Nausea with vomiting, unspecified
CPT/HCPCS: 96361; 96365; 96372; 96375; 99284

== ENCOUNTER 2017-11-25 15:07 | Outpatient (CLI) ==
--- NOTE | 2017-11-25 15:37 | DI ---
EXAM: Two views of the chest. History: Cough. Comparison: Chest radiograph 07/17/2017 Findings: Heart size is normal. No focal consolidation. No appreciable pleural fluid and no pneumo thorax. No acute osseous abnormalities. Impression: No acute cardiopulmonary process
== END 2017-11-25 15:08 | disposition home or self-care (01) ==
LOC: RAD 15:07
PROVIDERS: ATTEND Family Medicine
DX: R05 Cough (principal)

== ENCOUNTER 2018-01-27 09:02 | Outpatient (CLI) ==
--- NOTE | 2018-01-27 10:25 | CT ---
EXAM: CT of the abdomen pelvis without contrast History: Hematuria, umbilical pain. Comparison: CT abdomen pelvis 08/27/2015 Technique: Multiplanar CT images through the abdomen pelvis were obtained without the administration of IV contrast Findings: Lung bases are clear. No acute osseous abnormalities. Posterior fusion hardware at L5, S1 i s intact. Status post cholecystectomy. No focal liver or splenic lesions. No renal stones and no hydronephros is. No ureteral calculi. No peripancreatic inflammation. Adrenal glands are unremarkable. No dila christel loops of bowel. No free air and no ascites. The appendix is not seen. There are no secondary s igns of appendicitis. No bladder wall thickening. Adnexal structures appear appropriate for patient 's age. No perirectal inflammation. No inflammatory stranding. Impression: No acute intra-abdominal or pelvic process.
== END 2018-01-27 09:03 | disposition home or self-care (01) ==
LOC: RAD 09:02
PROVIDERS: ATTEND Family Medicine
DX: K42.9 Umbilical hernia without obstruction or gangrene (principal)
CPT/HCPCS: 74176

== ENCOUNTER 2018-02-01 12:59 | Outpatient (CLI) | END 2018-02-01 13:00 | disposition home or self-care (01) | LOC: CAR 12:59 | PROVIDERS: ATTEND Family Medicine | DX: R00.2 Palpitations (principal); E03.9 Hypothyroidism, unspecified | CPT/HCPCS: 93227 ==